=== PATIENT | female | born 1950 | race Two or more races ===

== ENCOUNTER 2023-11-19 06:10 | Outpatient (CLI) | payer OTHER ==
[2023-11-19 07:06] LABS: CREATININE SERUM 0.9 mg/dL (0.55-1.02)
[2023-11-19] MEDS ORDERED: HORIZANT300 MG PO (12:11)
[2023-11-19] MEDS ORDERED: ZESTRIL10 M1 PO (12:11)
[2023-11-19] MEDS ORDERED: METFORMIN HCL850 MG (12:11)
[2023-11-19] MEDS ORDERED: MONTELUKAST SOD10 MG PO (12:12)
== END 2023-11-19 06:11 | disposition home or self-care (01) ==
LOC: LAB 06:10
PROVIDERS: ATTEND Radiology Diagnostic Radiology
DX: K62.5 Hemorrhage of anus and rectum (principal)

== ENCOUNTER 2023-11-19 07:10 | Outpatient (CLI) | payer OTHER ==
[2023-11-19] MEDS ORDERED: ZESTRIL10 M1 PO (12:11)
[2023-11-19] MEDS ORDERED: HORIZANT300 MG PO (12:11)
[2023-11-19] MEDS ORDERED: METFORMIN HCL850 MG (12:11)
[2023-11-19] MEDS ORDERED: MONTELUKAST SOD10 MG PO (12:12)
== END 2023-11-19 07:22 | disposition home or self-care (01) ==
LOC: TOM 07:10
PROVIDERS: ATTEND Surgery
DX: C20 Malignant neoplasm of rectum (principal); K62.5 Hemorrhage of anus and rectum; R59.0 Localized enlarged lymph nodes
CPT/HCPCS: 71260; Q9965

== ENCOUNTER 2023-11-22 06:24 | Day surgery (SDC) | payer OTHER ==
[~2023-11-22] VITALS: Ht 154.9 cm; Wt 45.4 kg
[~2023-11-22 06:24] MED LIST: HORIZANT300 MG PO; METFORMIN HCL850 MG; MONTELUKAST SOD10 MG PO; VANCOMYCIN HCL 1,000 MG VIAL IV SCH; ZESTRIL10 M1 PO
[2023-11-22] MEDS ORDERED: VANCOMYCIN HCL 1,000 MG VIAL ONE (07:19)
[2023-11-22] MEDS ORDERED: HEPARIN SODIUM,PORCINE 500 UNITS/5 ML VIAL IV ONE (08:33)
[2023-11-22] MEDS ORDERED: BUPIVACAINE HCL/MPF 0.5% 30ML VIAL ONE (08:33)
[2023-11-22] MEDS ORDERED: LIDOCAINE HCL 1%/EPINEPHRINE 20ML VIAL IJ ONE (08:33)
[2023-11-22] MEDS ORDERED: TRAM1TAB98 PO (09:36)
== END 2023-11-22 11:35 | disposition home or self-care (01) ==
LOC: CIR.AMB 06:24
PROVIDERS: ATTEND Surgery
DX: C20 Malignant neoplasm of rectum (principal); K62.5 Hemorrhage of anus and rectum; R59.0 Localized enlarged lymph nodes; I10 Essential (primary) hypertension; E11.9 Type 2 diabetes mellitus without complications; E78.00 Pure hypercholesterolemia, unspecified; D64.9 Anemia, unspecified
CPT/HCPCS: 36561; C1751

== ENCOUNTER 2024-05-27 11:15 | Inpatient (IN) | payer OTHER ==
[~2024-05-27] VITALS: Ht 152.4 cm; Wt 45.4 kg
[~2024-05-27 11:15] MED LIST changes: +TRAM1TAB98 PO; -VANCOMYCIN HCL 1,000 MG VIAL IV SCH
[2024-05-27 14:48] LABS: RH POSITIVE
[2024-06-02] MEDS ORDERED: CEFTRIAXONE SODIUM 2,000 MG VIAL ONE (07:09)
[2024-06-02] MEDS ORDERED: METRONIDAZOLE/SODIUM CHLORIDE 500 MG/100 ML PIGGYBACK IV ONE (07:09)
[2024-06-02] MEDS ORDERED: BUPIVACAINE HCL/Mpf 0.5% 10ML VIAL ONE (07:09)
[2024-06-02] MEDS ORDERED: LIDOCAINE HCL 1%/EPINEPHRINE 20ML VIAL IJ ONE (07:09)
[2024-06-02] MEDS ORDERED: levoFLOXacin IN DEXTROSE 5 % 5 MG/ML PIGGYBAG IV ONE (07:32)
[2024-06-02] MEDS ORDERED: SUGAMMADEX SODIUM 200 MG/2 ML VIAL IV ONE (10:57)
[2024-06-02] MEDS ORDERED: MORPHINE SULFATE 4 MG/ML VIAL IV ONE ×2 (11:35→12:05)
[2024-06-02] MEDS ORDERED: DEXTROSE 50 % IN WATER 0.5 G/ML DISP.SYRIN IV PRN (12:30)
[2024-06-02] MEDS ORDERED: MORPHINE SULFATE 4 MG/ML CARTRIDGE IV PRN (12:30)
[2024-06-02] MEDS ORDERED: ONDANSETRON HCL 2 MG/ML VIAL IV PRN (12:30)
[2024-06-02] MEDS ORDERED: RINGERS SOLUTION,LACTATED 1,000 ML IV SCH (12:30)
[2024-06-02] MEDS ORDERED: OxyCODONE HCL 5 MG TABLET (ROXICODONE) PO PRN (12:30)
[2024-06-02] MEDS ORDERED: MEPERIDINE HCL 25 MG/ML AMPUL IV ONE (12:35)
[2024-06-02] MEDS ORDERED: HYOSCYAMINE SULFATE 0.125 MG TAB.SUBL SL SCH (13:00)
[2024-06-02 13:52] LABS: HEMATOCRIT 32.9 % (36.0-45.00); HEMOGLOBIN 10.8 g/dL (12.0-15.00); MEAN CELL VOLUME 87.1 fL (80.00-100.00); MEAN CORPUSCULAR HEMOGLOBIN 28.7 pg (27.00-32.0); MEAN CORPUSCULAR HGB CONC 32.9 g/dl (32.0-36.0); PLATELET COUNT 194 K/uL (150-450); RED BLOOD COUNT 3.78 M/uL (4.00-6.00)
[2024-06-02] MEDS ORDERED: ACETAMINOPHEN 500 MG GEL..CAP PO SCH (14:00)
[2024-06-02 14:25] LABS: ALBUMIN 3.2 gm/dL (3.4-5.0); CALCIUM 8.9 mg/dL (8.5-10.1); CREATININE SERUM 0.77 mg/dL (0.55-1.02); GFR 73.9; PHOSPHOROUS 3.2 mg/dL (2.5-4.9); POTASSIUM 3.85 mEq/L (3.5-5.1)
[2024-06-02 14:27] LABS: MAGNESIUM 1.2 mg/dL (1.8-2.4)
[2024-06-02] MEDS ORDERED: POLYETHYLENE GLYCOL 3350 17 GM BLIST.PACK PO SCH (17:00)
[2024-06-02] MEDS ORDERED: SOD FERRIC GLUC COMPLX/SUCROSE 62.5 MG in 0.9 % SODIUM CHLORIDE 50 ML IV SCH (17:00)
[2024-06-02] MEDS ORDERED: GABAPENTIN 300 MG CAPSULE PO SCH (17:00)
[2024-06-02] MEDS ORDERED: MAGNESIUM SULFATE IN WATER 2 GM/50 ML PIGGYBAG IV NR (17:00)
[2024-06-02] MEDS ORDERED: FAMOTIDINE/PF 20 MG/2 ML VIAL IV PUSH SCH (21:00)
[2024-06-02 23:55] VITALS: BP 111/58; O2SAT 96
[2024-06-03 08:00] VITALS: BP 114/69; O2SAT 98
[2024-06-03] MEDS ORDERED: Cyanocobalamin/Mecobalamin 1 TAB.SL SL SCH (09:00)
[2024-06-03] MEDS ORDERED: TAMSULOSIN HCL 0.4 MG CAP PO SCH (09:00)
[2024-06-03 11:00] LABS: HEMATOCRIT 32.4 % (36.0-45.00); HEMOGLOBIN 10.6 g/dL (12.0-15.00); MEAN CELL VOLUME 87.9 fL (80.00-100.00); MEAN CORPUSCULAR HEMOGLOBIN 28.8 pg (27.00-32.0); MEAN CORPUSCULAR HGB CONC 32.7 g/dl (32.0-36.0); PLATELET COUNT 217 K/uL (150-450); RED BLOOD COUNT 3.68 M/uL (4.00-6.00); RED CELL DISTRIBUTION WIDTH 14.6 % (11.5-14.5)
[2024-06-03 11:04] LABS: CALCIUM 8.7 mg/dL (8.5-10.1); CREATININE SERUM 0.75 mg/dL (0.55-1.02); GFR 76.17; PHOSPHOROUS 3.2 mg/dL (2.5-4.9); POTASSIUM 4.1 mEq/L (3.5-5.1)
[2024-06-03] MEDS ORDERED: METFORMIN HCL850 M1 (13:32)
[2024-06-03] MEDS ORDERED: SIMVASTATIN20 MG (13:33)
[2024-06-03 16:00] VITALS: BP 90/56; O2SAT 96
[2024-06-03] MEDS ORDERED: ENOXAPARIN SODIUM 40 MG/0.4 ML SYRINGE SUBCUTANEO SCH (17:00)
[2024-06-04 00:38] VITALS: BP 104/62; O2SAT 99
[2024-06-04 08:01] LABS: HEMOGLOBIN 9.9 g/dL (12.0-15.00); MEAN CELL VOLUME 86.1 fL (80.00-100.00); MEAN CORPUSCULAR HEMOGLOBIN 29.4 pg (27.00-32.0); MEAN CORPUSCULAR HGB CONC 34.1 g/dl (32.0-36.0); PLATELET COUNT 204 K/uL (150-450); RED BLOOD COUNT 3.37 M/uL (4.00-6.00); RED CELL DISTRIBUTION WIDTH 14.9 % (11.5-14.5)
[2024-06-04 08:24] LABS: CREATININE SERUM 0.85 mg/dL (0.55-1.02); GFR 65.93; MAGNESIUM 1.9 mg/dL (1.8-2.4); PHOSPHOROUS 2.3 mg/dL (2.5-4.9); POTASSIUM 4.15 mEq/L (3.5-5.1)
[2024-06-04 08:29] VITALS: BP 118/74; O2SAT 100
[2024-06-04] MEDS ORDERED: ENOXAPARIN SODIUM 40 MG/0.4 ML SYRINGE SUBCUTANEO SCH (09:00)
[2024-06-04] MEDS ORDERED: POTASSIUM PHOS,M-BASIC-D-BASIC 3 MM/ML VIAL IV NR (09:30)
[2024-06-04] MEDS ORDERED: FUROsemide 20 MG/2 ML VIAL IV SCH (11:45)
[2024-06-04 16:00] VITALS: BP 120/71; O2SAT 100
[2024-06-04] MEDS ORDERED: GABAPENTIN 100 MG CAPSULE PO SCH (17:00)
[2024-06-04] MEDS ORDERED: GABAPENTIN 300 MG CAPSULE PO SCH (21:00)
[2024-06-05 00:30] VITALS: BP 108/72; O2SAT 100
[2024-06-05 08:34] VITALS: BP 135/83; O2SAT 97
[2024-06-05 16:00] VITALS: BP 137/75; O2SAT 99
[2024-06-06 01:08] VITALS: BP 120/79; O2SAT 100
[2024-06-06 04:59] LABS: HEMATOCRIT 44.9 % (36.0-45.00); HEMOGLOBIN 15.5 g/dL (12.0-15.00); MEAN CELL VOLUME 85.3 fL (80.00-100.00); MEAN CORPUSCULAR HEMOGLOBIN 29.4 pg (27.00-32.0); MEAN CORPUSCULAR HGB CONC 34.5 g/dl (32.0-36.0); PLATELET COUNT 217 K/uL (150-450); RED BLOOD COUNT 5.26 M/uL (4.00-6.00); RED CELL DISTRIBUTION WIDTH 14.5 % (11.5-14.5)
[2024-06-06 08:00] VITALS: BP 140/85; O2SAT 97
[2024-06-06] MEDS ORDERED: hydrOXYzine HCL 25 MG TABLET PO STA (13:26)
[2024-06-06] MEDS ORDERED: hydrOXYzine HCL 25 MG TABLET PO PRN (13:30)
[2024-06-06 15:57] VITALS: BP 119/79; O2SAT 100
[2024-06-07] VITALS: BP 141/80; O2SAT 100
[2024-06-07 08:00] VITALS: BP 139/79; O2SAT 99
[2024-06-07 08:25] LABS: HEMATOCRIT 46.4 % (36.0-45.00); HEMOGLOBIN 15.5 g/dL (12.0-15.00); MEAN CELL VOLUME 87.7 fL (80.00-100.00); MEAN CORPUSCULAR HEMOGLOBIN 29.3 pg (27.00-32.0); MEAN CORPUSCULAR HGB CONC 33.4 g/dl (32.0-36.0); PLATELET COUNT 227 K/uL (150-450); RED BLOOD COUNT 5.29 M/uL (4.00-6.00); RED CELL DISTRIBUTION WIDTH 14.8 % (11.5-14.5)
[2024-06-07 16:37] VITALS: BP 111/72; O2SAT 94
[2024-06-08] VITALS: BP 125/69; O2SAT 97
[2024-06-08 08:38] VITALS: BP 121/82; O2SAT 98
[2024-06-08] MEDS ORDERED: PEPCID AC20 MG PO (11:46)
[2024-06-08] MEDS ORDERED: HYOSCYAMINE0.125 M1 SL (11:46)
[2024-06-08] MEDS ORDERED: TRAM1TAB98 PO (11:46)
== END 2024-06-08 13:26 | disposition home or self-care (01) | DRG 330 ==
LOC: O/R 06-02 05:20 → SURH 06-02 05:20
PROVIDERS: Internal Medicine Geriatric Medicine; ADMIT Surgery; ATTEND Surgery
PROC: 0DBP4ZZ Excision of Rectum, Percutaneous Endoscopic Approach (ICD-10-PCS; 2024-06-02)
PROC: 07BC4ZZ Excision of Pelvis Lymphatic, Percutaneous Endoscopic Approach (ICD-10-PCS; 2024-06-02)
PROC: 0D1B4Z4 Bypass Ileum to Cutaneous, Percutaneous Endoscopic Approach (ICD-10-PCS; 2024-06-02)
PROC: 0DJD8ZZ Inspection of Lower Intestinal Tract, Via Natural or Artificial Opening Endoscopic (ICD-10-PCS; 2024-06-02)
PROC: 8E0W4CZ Robotic Assisted Procedure of Trunk Region, Percutaneous Endoscopic Approach (ICD-10-PCS; 2024-06-02)
PROC: 0DTN4ZZ Resection of Sigmoid Colon, Percutaneous Endoscopic Approach (ICD-10-PCS; principal; 2024-06-02 13:00)
PROC: 30233N1 Transfusion of Nonautologous Red Blood Cells into Peripheral Vein, Percutaneous Approach (ICD-10-PCS; 2024-06-04)
DX: C20 Malignant neoplasm of rectum (principal); K62.5 Hemorrhage of anus and rectum; R59.0 Localized enlarged lymph nodes; E11.9 Type 2 diabetes mellitus without complications; D64.89 Other specified anemias; I10 Essential (primary) hypertension; Z43.2 Encounter for attention to ileostomy
CPT/HCPCS: 44207; 38571; 44213; 45300; 44187; 36430; S2900

== ENCOUNTER 2024-12-10 12:00 | Inpatient (IN) | payer OTHER ==
[~2024-12-10] VITALS: Ht 154.9 cm; Wt 49.9 kg
[~2024-12-10 12:00] MED LIST changes: +HYOSCYAMINE0.125 M1 SL; +METFORMIN HCL850 M1; +PEPCID AC20 MG PO; +SIMVASTATIN20 MG
[2025-01-08 07:25] LABS: URINE APPEARANCE Clear; URINE BILIRRUBIN Negative (NEGATIVE); URINE BLOOD Negative; URINE COLOR Yellow; URINE GLUCOSE Negative (NEGATIVE); URINE KETONE Negative (NEGATIVE); URINE LEUKOCYTE Trace; URINE NITRATE Negative; URINE PROTEIN Negative (NEGATIVE); URINE UROBILINOGEN 0.2 E.U./dl
[2025-01-08 07:29] LABS: URINE BACTERIA 44.3 uL (0.0-1933); URINE EPITHELIAL CELLS 9.5 uL (0.0-38.8); URINE WBC 21.3 uL (0.0-23.2)
[2025-01-08 07:32] LABS: BASO % 0.8 % (0.1-1.2); EOS # 0.15 (0.04-0.54); EOS % 4.1 % (0.7-7.0); LYMPH # 0.74 (1.18-3.74); LYMPH % 20.2 % (19.3-53.1); MEAN PLATELET VOLUME 9.70 fl (9.4-12.4); MONO # 0.39 (0.24-0.82); MONO % 10.7 % (4.7-12.5); NEUT # 2.33 (1.56-6.13); NEUT % 63.7 % (34.0-71.1); RED CELL DISTRIBUTION WIDTH 12.8 % (11.6-14.4)
[2025-01-08 07:34] LABS: URINE CAST 0.29 uL (0.0-1.40); URINE RBC 1.7 uL (0.0-20.8)
[2025-01-08 07:52] LABS: INR 0.98
[2025-01-08 08:13] LABS: ALT/SGPT 42.0 U/L (12-78); AST/SGOT 22.0 U/L (15-37); BILIRUBIN TOTAL 0.57 mg/dL (0.3-1.2); BUN CREA RATIO 24.0 (7.0-25.0); CREATININE SERUM 1.0 mg/dL (0.55-1.02); GFR 54.5; GLOBULINA 3.7 G/DL (2.4-3.5); GLUCOSE FASTING 88.0 mg/dL (65-100); OSMOLALITY SERUM 288.0 MOSM/KG (275-295)
[2025-01-12] MEDS ORDERED: METRONIDAZOLE/SODIUM CHLORIDE 500 MG/100 ML PIGGYBACK IV ONE (08:02)
[2025-01-12] MEDS ORDERED: ENALAPRILAT DIHYDRATE 1.25 MG/ML VIAL IV PRN (15:15)
[2025-01-12 15:57] LABS: BASO % 0.1 % (0.1-1.2); EOS # 0.02 (0.04-0.54); EOS % 0.2 % (0.7-7.0); LYMPH # 0.63 (1.18-3.74); LYMPH % 7.2 % (19.3-53.1); MEAN PLATELET VOLUME 9.90 fl (9.4-12.4); MONO # 0.69 (0.24-0.82); MONO % 7.9 % (4.7-12.5); NEUT # 7.39 (1.56-6.13); NEUT % 84.3 % (34.0-71.1); RED CELL DISTRIBUTION WIDTH 12.6 % (11.6-14.4)
[2025-01-12 16:44] LABS: BUN CREA RATIO 19.0 (7.0-25.0); CREATININE SERUM 0.75 mg/dL (0.55-1.02); GFR 75.96; GLUCOSE FASTING 111.0 mg/dL (65-100); OSMOLALITY SERUM 277.0 MOSM/KG (275-295)
[2025-01-12 20:03] VITALS: BP 113/63; O2SAT 99
[2025-01-12] MEDS ORDERED: DEXTROSE 5 %-0.45 % SOD CHLORD 1,000 ML IV SCH (23:15)
[2025-01-12] MEDS ORDERED: MORPHINE SULFATE 4 MG,MORPHINE SULFATE 2 MG IV PRN (23:30)
[2025-01-12] MEDS ORDERED: ONDANSETRON HCL 2 MG/ML VIAL IV PRN (23:30)
[2025-01-13] MEDS ORDERED: ENALAPRILAT DIHYDRATE 1.25 MG/ML VIAL IV SCH
[2025-01-13 00:46] VITALS: BP 96/59; O2SAT 96
[2025-01-13] MEDS ORDERED: GABAPENTIN 300 MG CAPSULE PO SCH (01:00)
[2025-01-13] MEDS ORDERED: ACETAMINOPHEN 500 MG GEL..CAP PO SCH (02:00)
[2025-01-13] MEDS ORDERED: ENALAPRILAT DIHYDRATE 1.25 MG/ML VIAL IV PRN (06:45)
[2025-01-13 07:57] LABS: BASO % 0.3 % (0.1-1.2); EOS # 0.04 (0.04-0.54); EOS % 0.7 % (0.7-7.0); LYMPH # 0.53 (1.18-3.74); LYMPH % 8.8 % (19.3-53.1); MEAN PLATELET VOLUME 11.00 fl (9.4-12.4); MONO # 0.92 (0.24-0.82); NEUT # 4.48 (1.56-6.13); NEUT % 74.6 % (34.0-71.1); RED CELL DISTRIBUTION WIDTH 12.5 % (11.6-14.4)
[2025-01-13 08:00] VITALS: BP 111/80; O2SAT 94
[2025-01-13 08:18] LABS: MONO % 15.3 % (4.7-12.5)
[2025-01-13] MEDS ORDERED: LISINOPRIL 5 MG TABLET PO SCH (09:00)
[2025-01-13] MEDS ORDERED: FAMOTIDINE/PF 20 MG/2 ML VIAL IV PUSH SCH (09:00)
[2025-01-13] MEDS ORDERED: ENOXAPARIN SODIUM 40 MG/0.4 ML SYRINGE SUBCUTANEO SCH (09:00)
[2025-01-13 09:04] LABS: BUN CREA RATIO 14.0 (7.0-25.0); CREATININE SERUM 0.78 mg/dL (0.55-1.02); GFR 72.6; GLUCOSE FASTING 58.0 mg/dL (65-100); OSMOLALITY SERUM 278.0 MOSM/KG (275-295)
[2025-01-13] MEDS ORDERED: MAGNESIUM SULFATE IN WATER 50 ML IV ONE (12:00)
[2025-01-13 16:00] VITALS: BP 105/63; O2SAT 96
[2025-01-14 01:35] VITALS: BP 106/67; O2SAT 98
[2025-01-14 08:01] LABS: BASO % 0.5 % (0.1-1.2); EOS # 0.05 (0.04-0.54); EOS % 0.6 % (0.7-7.0); LYMPH # 0.52 (1.18-3.74); LYMPH % 6.4 % (19.3-53.1); MEAN PLATELET VOLUME 9.70 fl (9.4-12.4); MONO # 0.80 (0.24-0.82); MONO % 9.8 % (4.7-12.5); NEUT # 6.72 (1.56-6.13); NEUT % 82.5 % (34.0-71.1); RED CELL DISTRIBUTION WIDTH 12.8 % (11.6-14.4)
[2025-01-14 08:11] VITALS: BP 108/70; O2SAT 96
[2025-01-14 08:56] LABS: BUN CREA RATIO 11.0 (7.0-25.0); CREATININE SERUM 0.9 mg/dL (0.55-1.02); GFR 61.55; GLUCOSE FASTING 134.0 mg/dL (65-100); OSMOLALITY SERUM 280.0 MOSM/KG (275-295)
[2025-01-14] MEDS ORDERED: MAGNESIUM SULFATE IN WATER 50 ML IV NR (11:30)
[2025-01-14 16:00] VITALS: BP 103/68; O2SAT 98
[2025-01-15 02:44] VITALS: BP 84/56; O2SAT 96
[2025-01-15 08:00] VITALS: BP 103/67; O2SAT 96
[2025-01-15] MEDS ORDERED: INTESTINEX680 M1 PO (14:54)
[2025-01-15] MEDS ORDERED: NEURONTIN300 MG PO (14:54)
[2025-01-15] MEDS ORDERED: TYLENOL ARTHRI650 MG PO (14:54)
== END 2025-01-15 16:32 | disposition home or self-care (01) | DRG 331 ==
LOC: SURH 01-07 11:15 → O/R 01-12 17:46 → SURH 01-12 17:48
PROVIDERS: ADMIT Surgery; ATTEND Surgery
PROC: 0DBB4ZZ Excision of Ileum, Percutaneous Endoscopic Approach (ICD-10-PCS; principal; 2025-01-12)
DX: Z43.2 Encounter for attention to ileostomy (principal)